=== PATIENT | female | born 1975 | race Two or more races ===

== ENCOUNTER 2018-05-07 14:59 | Outpatient (CLI) | payer OTHER | END 2018-05-07 15:58 | disposition home or self-care (01) | LOC: SONOGRAMA 14:59 | DX: N60.11 Diffuse cystic mastopathy of right breast (principal); N60.12 Diffuse cystic mastopathy of left breast ==

== ENCOUNTER 2018-05-28 06:58 | Day surgery (SDC) | payer OTHER | END 2018-05-28 18:30 | disposition home or self-care (01) | LOC: CIR.AMB 06:58 | DX: D24.2 Benign neoplasm of left breast (principal) ==

== ENCOUNTER 2020-07-26 08:51 | Day surgery (SDC) | payer OTHER | END 2020-07-26 15:30 | disposition home or self-care (01) | LOC: CIR.AMB 08:51 | PROVIDERS: ATTEND Orthopaedic Surgery | DX: M77.12 Lateral epicondylitis, left elbow (principal); M65.812 Other synovitis and tenosynovitis, left shoulder; Z20.822 Contact with and (suspected) exposure to COVID-19 ==

== ENCOUNTER 2023-10-20 14:08 | Inpatient (IN) | payer OTHER ==
[~2023-10-20] VITALS: Ht 157.5 cm; Wt 61.7 kg
[2023-10-20 14:11] LABS: PH,URINE 7.5 (5.0-8.0); URINE APPEARANCE Cloudy; URINE BILIRRUBIN Negative (NEGATIVE); URINE BLOOD Negative; URINE COLOR Yellow; URINE GLUCOSE Negative (NEGATIVE); URINE KETONE Negative (NEGATIVE); URINE LEUKOCYTE Trace; URINE NITRATE Negative; URINE PROTEIN Negative (NEGATIVE); URINE UROBILINOGEN 0.2 E.U./dl
[2023-10-20 14:14] LABS: URINE BACTERIA 415.7 uL (0.0-1933); URINE EPITHELIAL CELLS 22.3 uL (0.0-38.8); URINE RBC 21.6 uL (0.0-20.8); URINE WBC 8.9 uL (0.0-23.2)
[2023-10-20] MEDS ORDERED: IRON325 MG PO (14:14)
[2023-10-20 14:21] LABS: HEMATOCRIT 40.4 % (36.0-45.00); HEMOGLOBIN 13.7 g/dL (12.0-15.00); MEAN CELL VOLUME 85.9 fL (80.00-100.00); MEAN CORPUSCULAR HGB CONC 33.8 g/dl (32.0-36.0); PLATELET COUNT 373 K/uL (150-450); RED BLOOD COUNT 4.71 M/uL (4.00-6.00)
[2023-10-20 14:22] LABS: RED CELL DISTRIBUTION WIDTH 22.1 % (11.5-14.5)
[2023-10-20 14:36] LABS: ALBUMIN 3.9 gm/dL (3.4-5.0); BILIRUBIN TOTAL 0.41 mg/dL (0.3-1.2); CALCIUM 8.7 mg/dL (8.5-10.1); CREATININE SERUM 0.69 mg/dL (0.55-1.02); GFR 91.59; GLOBULINA 3.5 G/DL (2.4-3.5); POTASSIUM 4.22 mEq/L (3.5-5.1); TOTAL PROTEIN 7.4 gm/dL (6.4-8.2)
[2023-10-20 14:52] LABS: INR 1.05; PARTIAL THROMBOPLASTIN TIME 26.3 SECONDS (22.0-34.0); PROTHROMBIN TIME 10.6 SECONDS (9.0-11.5)
[2023-10-26] MEDS ORDERED: CEFAZOLIN SODIUM 1,000 MG VIAL ONE (13:00)
[2023-10-26] MEDS ORDERED: CEFAZOLIN SODIUM 1,000 MG VIAL IV SCH ×2 (14:15→18:00)
[2023-10-26] MEDS ORDERED: HEMOSTATIC MATRIX 1 KIT KIT TOP ONE ×2 (14:42→15:00)
[2023-10-26] MEDS ORDERED: ONDANSETRON HCL 2 MG/ML VIAL IV PRN (15:15)
[2023-10-26] MEDS ORDERED: MORPHINE SULFATE 4 MG/ML VIAL IV PRN (15:15)
[2023-10-26] MEDS ORDERED: RINGERS SOLUTION,LACTATED 1,000 ML IV SCH (15:15)
[2023-10-26] MEDS ORDERED: MORPHINE SULFATE 4 MG,MORPHINE SULFATE 2 MG IV PRN (16:00)
[2023-10-26 20:16] LABS: HEMOGLOBIN 13.5 g/dL (12.0-15.00); MEAN CELL VOLUME 86.9 fL (80.00-100.00); MEAN CORPUSCULAR HGB CONC 34.5 g/dl (32.0-36.0); PLATELET COUNT 390 K/uL (150-450); RED BLOOD COUNT 4.49 M/uL (4.00-6.00); RED CELL DISTRIBUTION WIDTH 19.9 % (11.5-14.5)
[2023-10-27] MEDS ORDERED: OxyCODONE HCL/APAP UD (PERCOCET) PO PRN (07:30)
[2023-10-27] MEDS ORDERED: ENOXAPARIN SODIUM 40 MG/0.4 ML SYRINGE SUBCUTANEO SCH (09:00)
[2023-10-27] MEDS ORDERED: HYOSCYAMINE SULFATE 0.125 MG TAB.SUBL PO SCH (20:00)
== END 2023-10-28 14:38 | disposition home or self-care (01) | DRG 743 ==
LOC: OB/GYN 10-26 05:55 → O/R 10-26 05:55 → OB/GYN 10-26 13:24
PROVIDERS: Obstetrics & Gynecology Gynecology; ADMIT Specialist; ATTEND Specialist
PROC: 0UT90ZZ Resection of Uterus, Open Approach (ICD-10-PCS; principal; 2023-10-26 16:00)
DX: D25.1 Intramural leiomyoma of uterus (principal); D25.2 Subserosal leiomyoma of uterus; D25.0 Submucous leiomyoma of uterus; N80.03 Adenomyosis of the uterus; Z20.822 Contact with and (suspected) exposure to COVID-19

== ENCOUNTER 2025-01-23 08:00 | Day surgery (SDC) | payer OTHER ==
[2025-01-19 09:43] VITALS: BP 121/88
[~2025-01-23] VITALS: Ht 154.9 cm; Wt 53.5 kg
[~2025-01-23 08:00] MED LIST: IRON325 MG PO
[2025-01-23] MEDS ORDERED: CEFAZOLIN SODIUM 1,000 MG VIAL IV ONE (12:45)
[2025-01-23] MEDS ORDERED: SUGAMMADEX SODIUM 200 MG/2 ML VIAL IV ONE (13:00)
[2025-01-23] MEDS ORDERED: TRAM1TAB98 PO (14:59)
[2025-01-23] MEDS ORDERED: NEURONTIN300 MG PO (14:59)
== END 2025-01-23 17:15 | disposition home or self-care (01) ==
LOC: CIR.AMB 08:00
PROVIDERS: ATTEND Obstetrics & Gynecology Gynecology
DX: D27.1 Benign neoplasm of left ovary (principal); D27.0 Benign neoplasm of right ovary